=== PATIENT | male | born 2000 | race Asian ===

== ENCOUNTER 2024-09-17 21:33 | Emergency (ER) | payer OTHER, SELFPAY ==
[~2024-09-17] VITALS: Ht 182.9 cm; Wt 74.1 kg
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
[2024-09-17 23:40] VITALS: BP 119/58; PULSE 81; RESP 20; TEMP 98.1
[2024-09-18] MEDS ORDERED: AUG875T PO (00:33)
[2024-09-18] MEDS ORDERED: TETANUS-DIPTH-ACEL PERTUSSIS 0.5ML SYR Tdap IM ONE (00:45)
[2024-09-18 00:55] VITALS: O2SAT 99
== END 2024-09-18 00:59 | disposition home or self-care (01) ==
LOC: ER 21:33
DX: S60.511A Abrasion of right hand, initial encounter (principal); X58.XXXA Exposure to other specified factors, initial encounter; Y93.89 Activity, other specified; Y92.89 Other specified places as the place of occurrence of the external cause; Y99.8 Other external cause status
CPT/HCPCS: 73130